=== PATIENT | male | born 1980 | race Caucasian/White ===

== ENCOUNTER 2019-07-16 12:19 | Emergency (ER) | payer OTHER ==
[2019-07-16] MEDS ORDERED: Cyclobenzaprine TAB* 10 MG PO ONE (15:29)
[2019-07-16] MEDS ORDERED: Ibuprofen TAB* 600 MG PO ONE (15:30)
[2019-07-16 15:39] LABS: Urine Appearance Clear; Urine Bilirubin Negative (Negative); Urine Blood Negative (Negative); Urine Color Yellow; Urine Glucose Negative (Negative); Urine Ketones Negative (Negative); Urine Nitrite Negative (Negative); Urine Protein Negative (Negative); Urine Specific Gravity 1.015 (1.010-1.030); Urine Urobilinogen Negative (Negative)
[2019-07-16 15:40] LABS: Urine Bacteria Absent (Absent); Urine Red Blood Cell Absent (Absent); Urine White Blood Cell Trace(0-5/hpf) (Absent)
[2019-07-16 16:52] VITALS: BP 110/73
--- NOTE | 2019-07-17 17:15 | ED ---
Back Pain - History of Current Complaint Chief Complaint: EDBackInjuryPain Stated Complaint: BACK AND HIP PAIN PER PT Time Seen by Provider: 07/16/19 14:59 Pain Intensity: 8 Pain Scale Used: 0-10 Numeric - Allergies/Home Medications Allergies/Adverse Reactions: Allergies Allergy/AdvReac Type Severity Reaction Status Date / Time diazepam Allergy Leg Cramps Verified 07/16/19 12:26 PMH/Surg Hx/FS Hx/Imm Hx Endocrine/Hematology History: Denies: Hx Diabetes, Hx Thyroid Disease Cardiovascular History: Denies: Hx Hypertension Respiratory History: Denies: Hx Asthma, Hx Chronic Obstructive Pulmonary Disease (COPD) GI History: Denies: Hx Ulcer History: Reports: Other Problems/Disorders - hx of stones - Surgical History Surgery Procedure, Year, and Place: inguinal hernia repair at 8 months and age 28 - Immunization History Date of Tetanus Vaccine: utd Date of Influenza Vaccine: 2017 Infectious Disease History: No Infectious Disease History: Denies: Hx Clostridium Difficile, Hx Hepatitis, Hx Human Immunodeficiency Virus (HIV), Hx of Known/Suspected MRSA, Hx Shingles, Hx Tuberculosis, History Other Infectious Disease, Traveled Outside the [place] in Last 30 Days - Family History Known Family History: Positive: Cardiac Disease, Hypertension - Social History Alcohol Use: None Substance Use Type: Reports: None Smoking Status (MU): Light Every Day Tobacco Smoker Type: Cigarettes Amount Used/How Often: 2 cigs/day Physical Exam Vital Signs On Initial Exam: Initial Vitals Temp Pulse Resp BP Pulse Ox 99.2 F 106 16 117/87 100 07/16/19 12:24 07/16/19 12:24 07/16/19 12:24 07/16/19 12:24 07/16/19 12:24 Diagnostics - Vital Signs Vital Signs Temp Pulse Resp BP Pulse Ox 07/16/19 16:51 97.5 F 81 16 110/73 100 07/16/19 14:23 99.1 F 89 16 113/72 99 07/16/19 12:24 99.2 F 106 16 117/87 100 - Laboratory Lab Results: Lab Results 07/16/19 Range/Units 15:30 Urine Color Yellow Urine Appearance Clear Urine pH 6.0 (5-9) Ur Specific [place] 1.015 (1.010-1.030) Urine Protein Negative (Negative) Urine Ketones Negative (Negative) Urine Blood Negative (Negative) Urine Nitrate Negative (Negative) Urine Bilirubin Negative (Negative) Urine Urobilinogen Negative (Negative) Ur Leukocyte Esterase 1+ A (Negative) Urine WBC (Auto) Trace(0-5/hpf) (Absent) Urine RBC (Auto) Absent (Absent) Urine Bacteria Absent (Absent) Urine Glucose Negative (Negative) Lab Statement: Any lab studies that have been ordered have been reviewed, and results considered in the medical decision making process. Discharge ED - Discharge Plan Condition: Stable Disposition: HOME Referrals: [facility] [Outside] Martin Felix DO [Primary Care Provider] - Additional Instructions: Please follow up with a PCP - i have given you information for the [facility] to establish care - Billing Disposition and Condition Condition: STABLE Disposition: Home
== END 2019-07-16 16:51 | disposition home or self-care (01) ==
LOC: ED 12:19
DX: M54.5 Low back pain (principal); M25.552 Pain in left hip; Z88.8 Allergy status to other drugs, medicaments and biological substances; Z87.442 Personal history of urinary calculi; F17.210 Nicotine dependence, cigarettes, uncomplicated
CPT/HCPCS: 81003; 81015; 87086; 99282; A9270-GY